=== PATIENT | female | born 1980 | race Two or more races ===

== ENCOUNTER 2023-12-27 06:16 | Emergency (ER) | payer SELFPAY ==
[2023-12-27 06:27] VITALS: BMI 23.4
[2023-12-27] MEDS ORDERED: morphine SULFATE 4 MG/ML VIAL ONE (06:41)
[2023-12-27] MEDS: morphine CARPU-JECT 4 MG/1 ML DISP.SYRIN IVPUSH ONE (06:58)
[2023-12-27] MEDS: SODIUM CHLORIDE 1,000 ML IV STA (06:58)
[2023-12-27 07:05] LABS: BASO % 0.7 % (0-2.0); EOS % 1.2 % (0-4.5); HEMATOCRIT 36.7 % (32.4-45.2); HEMOGLOBIN 12.3 GM/dL (10.7-15.3); LYMPH % 24.4 % (8-40); MCH 29.6 pg (25.7-33.7); MCHC 33.6 g/dl (32.0-36.0); MEAN CELL VOLUME 88.2 fl (80-96); MEAN PLT VOLUME 7.1 fl (7.5-11.1); MONO % 2.7 % (3.8-10.2); PLATELET COUNT 340 10^3/uL (134-434); RBC 4.16 M/mm3 (3.60-5.2); RDW 12.5 % (11.6-15.6); WHITE BLOOD COUNT 12.7 K/mm3 (4.0-10.0)
[2023-12-27 07:21] LABS: POTASSIUM 3.6 mmol/L (3.5-5.1)
[2023-12-27 07:22] LABS: CALCIUM 9.4 mg/dL (8.5-10.1)
[2023-12-27 07:23] LABS: ALBUMIN 3.7 g/dl (3.4-5.0); BLOOD UREA NITROGEN 11.2 mg/dL (7-18)
[2023-12-27 07:28] LABS: BILIRUBIN,TOTAL 0.9 mg/dL (0.2-1); TOT PROT 7.5 g/dl (6.4-8.2)
[2023-12-27] MEDS ORDERED: KETOROLAC TROMETHAMINE 15 MG/ML VIAL ONE (08:10)
[2023-12-27 08:12] LABS: EPI CELLS 12 /uL (0-25.1); HYALINE CASTS 0 /uL (0-3.1); PH,URINE 7.5 (5.0-8.0); URINE APPEARANCE CLEAR; URINE BACTERIA 14 /uL (0-1359); URINE BILIRUBIN NEGATIVE (NEGATIVE); URINE COLOR ORANGE; URINE GLUCOSE (UA) NEGATIVE (NEGATIVE); URINE KETONE NEGATIVE (NEGATIVE); URINE LEUK ESTERASE TRACE (NEGATIVE); URINE NITRITE NEGATIVE (NEGATIVE); URINE PROTEIN TRACE (NEGATIVE); URINE RBC 4126 /uL (0-23.9); URINE UROBILINOGEN 0.2 mg/dL (0.2-1.0); URINE WBC 21 /uL (0-25.8)
[2023-12-27 08:23] LABS: HCG,QUALITATIVE URINE Negative
[2023-12-27] MEDS: LACTATED RINGERS SOLUTION 1000 ML INFUS.BAG IV ONE (08:31)
[2023-12-27] MEDS: KETOROLAC TROMETHAMINE 15 MG/ML VIAL IVPUSH ONE (08:52)
[2023-12-27] MEDS: SODIUM CHLORIDE 0.9% 500 ML INFUS.BAG IV ONE (10:57)
[2023-12-27 11:31] VITALS: BP 120/70; PULSE 82; RESP 20; TEMP 98.5
== END 2023-12-27 11:29 | disposition home or self-care (01) ==
LOC: JER 06:16
PROC: 3E0333Z Introduction of Anti-inflammatory into Peripheral Vein, Percutaneous Approach (ICD-10-PCS; principal; 2023-12-27)
PROC: 3E033NZ Introduction of Analgesics, Hypnotics, Sedatives into Peripheral Vein, Percutaneous Approach (ICD-10-PCS; 2023-12-27)
PROC: 3E0337Z Introduction of Electrolytic and Water Balance Substance into Peripheral Vein, Percutaneous Approach (ICD-10-PCS; 2023-12-27)
DX: N13.2 Hydronephrosis with renal and ureteral calculous obstruction (principal); R10.9 Unspecified abdominal pain; R11.0 Nausea; R31.9 Hematuria, unspecified
CPT/HCPCS: 36415; 74176-TC; 80053; 81003; 84703; 85025; 93005; 93010; 99285-25